=== PATIENT | female | born 1960 | race Caucasian/White ===

== ENCOUNTER 2018-01-15 09:57 | Outpatient (CLI) | payer OTHER | END 2018-01-15 09:58 | disposition home or self-care (01) | LOC: BICMAMMO 09:57 | PROVIDERS: ATTEND Family Medicine | DX: Z12.31 Encounter for screening mammogram for malignant neoplasm of breast (principal); M81.0 Age-related osteoporosis without current pathological fracture | CPT/HCPCS: 77063; 77067; 77080 ==

== ENCOUNTER 2018-11-22 11:36 | Emergency (ER) | payer OTHER ==
[2018-11-22] MEDS ORDERED: Morphine 4 MG/ML VIAL ONE (12:00)
[2018-11-22 12:03] LABS: #Basophils 0.1 thou/uL (0.0-0.2); #Eosinphils 0.2 thou/uL (0.0-0.7); #Lymphocytes 1.5 thou/uL (1.20-3.40); #Monocytes 0.3 thou/uL (0.11-0.59); #Neutrophils 3.6 thou/uL (1.40-6.50); %Basophils 1.5 % (0.0-1.0); %Eosinophils 3.7 % (0.0-10.0); %Lymphocytes 26.4 % (21.0-51.0); %Monocytes 5.7 % (0.0-10.0); %Neutrophils 62.6 % (42.0-75.0); Hemoglobin 13.6 g/dL (12.0-16.0); Mean Corpuscular Hemoglobin 32.4 pg (27.0-31.0); Mean Corpuscular Volume 89.8 fL (78.0-98.0); Mean Platelet Volume 6.4 fL (7.4-10.4); Platelet Count 221 thou/uL (130-400); RBC Distribution Width 11.3 % (11.5-14.5); Red Blood Cell (RBC) Count 4.21 mill/uL (4.20-5.40); White Blood Cell (WBC) Count 5.7 thou/uL (4.8-10.8)
[2018-11-22 12:18] LABS: ALT (SGPT) 13 U/L (8-55); AST (SGOT) 11 U/L (5-34); Albumin 3.6 g/dL (3.5-5.0); Alkaline Phosphatase 110 U/L (40-150); Anion Gap 14 mmol/L (10-20); BUN (Urea Nitrogen) 8 mg/dL (9.8-20.1); Bilirubin, Total 0.2 mg/dL (0.2-1.2); CK (CPK) 58 U/L (29-168); Calc. Creatinine Clearance 0 mL/min (70-130); Calcium 8.6 mg/dL (7.8-10.44); Carbon Dioxide 21 mmol/L (22-29); Chloride 95 mmol/L (98-107); Estimated GFR-MDRD Greater than 90; Globulin 2.6 g/dL (2.4-3.5); Glucose 141 mg/dL (70-105); Lipase 12 U/L (8-78); Potassium 3.4 mmol/L (3.5-5.1); Protein, Total 6.2 g/dL (6.0-8.3); Sodium 127 mmol/L (136-145)
--- NOTE | 2018-11-22 13:40 | CT ---
CT CHEST WITH CONTRAST CT THORACIC SPINE WITH CONTRAST AND 3D VOLUME RENDERING: CLINICAL HISTORY: Posttraumatic injury, pain related to fall. FINDINGS: There is a circumscribed ovoid density of the pleural margin of the lateral right hemithorax, abuttin g the periphery of the right middle and right lower lobes at the level of convergence of the lateral margin of the major and minor pulmonary fissures measuring 3 cm AP x 1 cm transverse. Bilater al subpleural patchy opacities may relate to dependent atelectasis. No pleural effusion or pneumothorax. No posttraumatic aneurysmal dilatation of thoracic aorta or evidence of acute periaorti c hematoma. Imaging of the thoracic spine reveals a slight degree of kyphosis and levocurvature, without acute compression fracture or subluxation. No significant retropulsion of bone into the verte bral canal. Incidental imaging of small hypodensities of the hepatic parenchyma, too small to definitively characterize. IMPRESSION: 1. No definite acute post traumatic sequela of the chest. 2. Incidental note of ovoid, mass-like density of the pleural margin the lateral right hemithorax. R ecommend follow-up with pulmonary medicine consultation. Code lung nodule Transcribed Date/Time: 11/22/2018 2:06 PM
== END 2018-11-22 13:50 | disposition home or self-care (01) ==
LOC: SCSER 11:36
DX: S20.212A Contusion of left front wall of thorax, initial encounter (principal); F32.9 Major depressive disorder, single episode, unspecified; W22.8XXA Striking against or struck by other objects, initial encounter
CPT/HCPCS: 71260; 80053; 82550; 83690; 84484; 85025; 93005; J2270

== ENCOUNTER 2018-11-24 12:07 | Inpatient (IN) | payer OTHER ==
[2018-11-24] MEDS ORDERED: Ondansetron PF 4 MG/2 ML Vial ONE (12:32)
--- NOTE | 2018-11-24 13:03 | RAD ---
EXAM: Single view of the chest HISTORY: Syncope COMPARISON: 02/23/2012 FINDINGS: Single view of the chest shows a normal sized cardiomediastinal silhouette. There is no trenton dence of consolidation, mass, or pleural effusion. The bones are unremarkable. IMPRESSION: No evidence of acute cardiopulmonary disease
--- NOTE | 2018-11-24 13:03 | CT ---
EXAM: CT brain without contrast HISTORY: Fall last night with headache COMPARISON: None TECHNIQUE: Multiple contiguous axial images were obtained and a CT of the brain without contrast. FINDINGS: A metallic foreign body is seen in the posterior midline. This could potentially represent surgical clips. The brain is normal otherwise in morphology and attenuation without focal lesions or confluent areas of infarction. There is no evidence of hydrocephalus, intracranial hemorrhage, or extra-axial fluid collection. The calvarium and overlying soft tissues are unremarkable. The visualized paranasal sinuses and masto id air cells are well aerated. IMPRESSION: No evidence of acute intracranial abnormality
[2018-11-24 13:10] LABS: Hemoglobin 13.8 g/dL (12.0-16.0); Mean Corpuscular HGB CONC 35.6 g/dL (32.0-36.0); Mean Corpuscular Hemoglobin 32.2 pg (27.0-31.0); Mean Corpuscular Volume 90.6 fL (78.0-98.0); Platelet Count 225 thou/uL (130-400); RBC Distribution Width 11.3 % (11.5-14.5); Red Blood Cell (RBC) Count 4.29 mill/uL (4.20-5.40); White Blood Cell (WBC) Count 6.4 thou/uL (4.8-10.8)
[2018-11-24 13:14] LABS: ALT (SGPT) 13 U/L (8-55); AST (SGOT) 15 U/L (5-34); Albumin 3.9 g/dL (3.5-5.0); Alkaline Phosphatase 117 U/L (40-150); Anion Gap 15 mmol/L (10-20); BUN (Urea Nitrogen) 9 mg/dL (9.8-20.1); Band 4 % (5-11); Bilirubin, Total 0.4 mg/dL (0.2-1.2); CK (CPK) 59 U/L (29-168); Calc. Creatinine Clearance 0 mL/min (70-130); Calcium 8.8 mg/dL (7.8-10.44); Carbon Dioxide 24 mmol/L (22-29); Chloride 90 mmol/L (98-107); Eosinophils 1 % (0-10); Estimated GFR-MDRD Greater than 90; Globulin 3.1 g/dL (2.4-3.5); Glucose 102 mg/dL (70-105); Lipase 9 U/L (8-78); Lymphocytes 25 % (21-51); MDiff Complete? YES; Monocytes 6 % (0-10); Neutrophil 63 % (42-75); Platelet Morphology Comment Appears Adequate; Potassium 3.7 mmol/L (3.5-5.1); RBC Morphology Normal; Sodium 125 mmol/L (136-145)
[2018-11-24] MEDS ORDERED: Aspirin Chewable 81 MG TAB ONE ×2 (13:33)
[2018-11-24 16:17] VITALS: BMI 28.1
[2018-11-24] MEDS ORDERED: Losartan 25 MG TAB PO SCH (16:45)
[2018-11-24 16:46] LABS: Troponin I Less than 0.010 ng/mL (< 0.028)
[2018-11-24] MEDS ORDERED: HYDROcodone/Acetaminophen 7.5/325 mg Tablet PO PRN (17:32)
[2018-11-24] MEDS: Sodium Chloride 0.9% 1,000 ML IV SCH ×2 (17:49→23:52)
[2018-11-24] MEDS: hydrALAZINE 20 MG/ML VIAL SLOW IVP PRN (18:09)
[2018-11-24] MEDS: Ondansetron PF 4 MG/2 ML Vial IVP PRN ×2 (18:12→23:51)
[2018-11-24] MEDS: Mometasone/Formoterol 120 PUFF INHALER INH SCH (18:41)
[2018-11-24 19:39] LABS: Troponin I Less than 0.010 ng/mL (< 0.028)
[2018-11-24] MEDS: Promethazine HCl 25 MG/ML VIAL IM PRN (21:42)
[2018-11-24] MEDS: levETIRAcetam 500 MG TAB PO SCH (21:49)
[2018-11-24] MEDS: Losartan 25 MG TAB PO SCH (21:49)
[2018-11-24] MEDS: Famotidine 20 MG TAB PO SCH (21:49)
--- NOTE | 2018-11-25 00:19 | HP ---
HISTORY OF PRESENT ILLNESS: This is a 58-year-old white female with a history of petit mal seizures, followed by Dr. Cooper, Neurology, who presents with altered mental status. The patient has a long history of seizure disorder, on Trileptal for many years. The family states that over the past 6 months or so, she has been becoming more confused. Lately, things have gotten worse. On Saturday, she presented to the ER after having multiple falls and sustained a chest contusion with marked bruising. Last night, she also fell 3 times. She complained of blurred vision and dizziness as well as a migraine headache. She saw Dr. Cooper, Neurology this morning and her Trileptal was stopped and she was started on Keppra. However, later in the day, she became more confused with increasing headache, dizziness, and blurred vision. She then presented to the ER where she was noted to have a significantly elevated blood pressure. Her sodium was also noted to be 125. At this time, the patient is feeling somewhat better, but still confused according to the family. The sister, daughter, and niece are present. PAST MEDICAL HISTORY: Osteoporosis, hypertension, petit mal seizure disorder, hyperlipidemia. History of AVM, corrected. Asthma. PAST SURGICAL HISTORY: Left femur fracture in 2011, hysterectomy, brain surgery for AVM repair at age 19, appendectomy, deviated septum repair. FAMILY HISTORY: Father with history of kidney stones, hypertension. Mother with depression. Siblings with colon problems. 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 She is . She has 2 kids. She does not smoke and does not drink. MEDICATIONS: 1. Celexa 40 daily. 2. Keppra 500 b.i.d. 3. Her Trileptal was stopped today by Dr. Cooper and the patient was started on the Keppra. REVIEW OF SYSTEMS: As above. ALLERGIES: LATEX AND CODEINE. PHYSICAL EXAMINATION: VITAL SIGNS: Temp 98.6, pulse 71, respirations 18, pulse ox 96, blood pressure 221/98, just received losartan 50 mg. GENERAL: No acute distress at this time except for complaining of a headache. The patient is oriented to person and time, but not location. She does not know where she is at this time. HEENT: Clear. NECK: Supple. HEART: Regular rate and rhythm. LUNGS: Clear. ABDOMEN: Soft, nontender. EXTREMITIES: With no edema. NEURO: The patient is somewhat confused. She does answer questions appropriately. However, she is not aware that she is here at [facility]. She also was confused about her address. She knew what street she lives on, but she got the number incorrect. LABORATORY DATA: White count 6.4, H and H 13/38, platelets 225. Sodium 125, potassium 3.7, creatinine 0.63. Troponin I less than 0.010 x2. Liver function tests normal. Lipase 9. Previous sodium was 127 two days prior. She does have a history of low sodiums back in [address], no acute disease. Chest x-ray, no acute disease. CT of the chest done on 11/22, did show an ovoid masslike density of the pleural margin on the right hemothorax. The patient is scheduled to see Dr. Deras. ASSESSMENT: 1. Altered mental status secondary to hyponatremia. 2. Hyponatremia, status post multiple falls with dizziness. Multiple possibilities include volume overload, medication induced (Trileptal as well as Keppra), or cancer. 3. Petit mal seizure disorder, recently stopped the Trileptal because of the hyponatremia. The patient is started on Keppra. However, Keppra can also cause hyponatremia. 4. Hypertension. 5. Hyperlipidemia. 6. Anxiety disorder. PLAN: 1. Fluid restrict. 2. Repeat electrolytes in the a.m. 3. Continue Keppra. 4. Blood pressure control. 5. Consider Nephrology consult if sodium does not correct quickly. May also consult Dr. Deras considering the lung mass could possibly cause hyponatremia also. However, this does not appear to be an acute problem. Also consider consulting Neurology. For now, we will fluid restrict and recheck electrolytes in the a.m. Job ID: [id number]
[2018-11-25] MEDS: Promethazine HCl 25 MG/ML VIAL IM PRN (04:58)
[2018-11-25] MEDS: Ondansetron PF 4 MG/2 ML Vial IVP PRN ×2 (06:38→16:06)
[2018-11-25] MEDS: Mometasone/Formoterol 120 PUFF INHALER INH SCH ×2 (07:14→19:34)
[2018-11-25] MEDS: Famotidine 20 MG TAB PO SCH ×2 (08:59→21:07)
[2018-11-25] MEDS: Citalopram 20 MG TAB PO SCH (09:01)
[2018-11-25] MEDS: Losartan 25 MG TAB PO SCH ×2 (09:01→21:07)
[2018-11-25] MEDS: Enoxaparin Sodium 40 MG/0.4 ML SYRINGE SC SCH (09:02)
[2018-11-25 09:03] LABS: Anion Gap 11 mmol/L (10-20); BUN (Urea Nitrogen) 5 mg/dL (9.8-20.1); Calc. Creatinine Clearance 107 mL/min (70-130); Calcium 8.9 mg/dL (7.8-10.44); Carbon Dioxide 25 mmol/L (22-29); Chloride 89 mmol/L (98-107); Estimated GFR-MDRD Greater than 90; Glucose 127 mg/dL (70-105); Potassium 3.4 mmol/L (3.5-5.1); Sodium 122 mmol/L (136-145)
[2018-11-25] MEDS: levETIRAcetam 500 MG TAB PO SCH ×2 (09:03→21:07)
[2018-11-25] MEDS: hydrALAZINE 20 MG/ML VIAL SLOW IVP PRN (09:23)
--- NOTE | 2018-11-25 15:09 | CON ---
DATE OF CONSULTATION: 11/25/2018 CONSULTING PHYSICIAN: Darnell Rodriguez MD. REASON FOR CONSULTATION: Lung density. HISTORY OF PRESENT ILLNESS: The patient is a 58-year-old female, who was admitted to the hospital yesterday by Dr. Win. She apparently has been more confused than usual. She recently fell and sustained a chest contusion. She seems to be sore on the right side. I have a great deal of difficulty getting her to answer any questions for me during the exam as she wants to go right back asleep. She has no previous history of smoking that I can find. No previous history of cancer. PAST MEDICAL HISTORY: 1. Osteoporosis. 2. Hypertension. 3. Petit mal seizure disorder. 4. Hyperlipidemia. 5. Brain AVM. 6. Asthma. PAST SURGICAL HISTORY: Left femur fracture, hysterectomy, brain surgery, appendectomy, deviated septum repair, AVM repair. FAMILY MEDICAL HISTORY: Remarkable for nephrolithiasis, hypertension, depression. SOCIAL HISTORY: Nonsmoker. Does not consume alcohol. 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 MEDICATIONS: 1. Celexa. 2. Keppra. 3. Trileptal as an outpatient. As an inpatient, she is currently taking, 1. Keppra. 2. Celexa. 3. Breo Ellipta. 4. Albuterol. REVIEW OF SYSTEMS: Cannot be obtained secondary to her confusion. PHYSICAL EXAMINATION: VITAL SIGNS: Temperature 97, pulse 94, blood pressure 196/96, O2 saturation 97% on room air. GENERAL: She does not appear to be in any distress. HEENT: Pupils somewhat dilated, but reactive. Sclerae anicteric. Oropharynx clear. NECK: No JVD. LUNGS: Clear to auscultation. CHEST: She has some palpable chest wall pain on the right side, but no visible bruising that I can see, but I had a hard time getting her to cooperate with exam as she would not roll over for me to examine her back. CARDIAC: S1 and S2 regular without murmur. ABDOMEN: Soft. Nontender to palpation. EXTREMITIES: No clubbing or cyanosis. She has bruising over both of her knees. LABORATORY DATA: Sodium 122, potassium 3.4, chloride 89, CO2 of 25, BUN 5, creatinine 0.6, glucose 127. White blood cell count 6.4, hematocrit 38.8, and platelet count 225. IMAGING STUDIES: CT of the chest was reviewed and compared to a CT from 2014. Most recent CT is from 11/22/2018. It demonstrates a 3 x 1 cm ovoid density laterally in the region of the right middle lobe, right lower lobe convergence. ASSESSMENT: 1. Density in the right chest. Given the history of falling, I am somewhat suspicious that this is a hematoma. I doubt that this is cancer. The only way we could tell would be to biopsy that and this could be done as an outpatient, if this does not show some tendency toward resolution over the next month. I doubt this has anything to do with her hyponatremia. 2. Hyponatremia. 3. Altered mental status. RECOMMENDATION: 1. Repeat CT scan in 4 to 6 weeks. 2. I would advise Nephrology consultation to work up and treat the hyponatremia. Job ID: [id number]
[2018-11-25 15:24] LABS: Anion Gap 12 mmol/L (10-20); BUN (Urea Nitrogen) 5 mg/dL (9.8-20.1); Calc. Creatinine Clearance 111 mL/min (70-130); Calcium 8.8 mg/dL (7.8-10.44); Carbon Dioxide 23 mmol/L (22-29); Chloride 92 mmol/L (98-107); Estimated GFR-MDRD Greater than 90; Glucose 121 mg/dL (70-105); Magnesium 1.7 mg/dL (1.6-2.6); Potassium 3.8 mmol/L (3.5-5.1); Sodium 123 mmol/L (136-145)
[2018-11-25 15:29] LABS: Phosphorus 1.9 mg/dL (2.3-4.7)
[2018-11-25] MEDS ORDERED: Sodium Phosphate 30 MMOL in Sodium Chloride 0.9% 250 ML 250 ML IVPB ONE (16:00)
--- NOTE | 2018-11-25 18:50 | PRG ---
DATE OF SERVICE: 11/25/2018 HISTORY OF PRESENT ILLNESS: The patient remains somnolent and unable to carry on complex questioning, is arousable and follows commands, but quickly returns to sleep without stimulus. Daughter is at bedside. Answered all of her questions. PHYSICAL EXAMINATION: VITAL SIGNS: At the time of exam, this morning; temperature of 97.0, pulse of 93, respiratory rate of 18, oxygen saturation 97% on room air, and blood pressure range 156/75 to 196/96. GENERAL: The patient is arousable, somnolent. No acute distress. HEENT: Head is normocephalic and atraumatic. Extraocular movements are intact. Sclerae are white. Oral mucosa is moist. NECK: Supple. HEART: Regular rate and rhythm at the time of exam. No murmurs auscultated. LUNGS: Clear to auscultation bilaterally. No rubs or wheezes. The patient is somewhat nauseated at bedside with movement. ABDOMEN: Soft and nontender. Positive bowel sounds throughout. EXTREMITIES: Lower extremities without cyanosis or edema. LABORATORY DATA: Electrolytes; 122 of sodium this morning, trending to 123 this afternoon; a potassium of 3.4, trending to 3.8; creatinine of 0.5; glucose of 121; phosphorus of 1.9; magnesium of 1.7; and calcium of 8.8. ASSESSMENT AND PLAN: 1. Hyponatremia. 2. Severe hypophosphatemia. 3. Recurrent falls with head injury. 4. Altered mental status. 5. Lung hematoma. 6. Seizure disorder. 7. Hypertension. Added metoprolol to angiotensin-receptor aaron for blood pressure control. Continuing Keppra for seizure disorder control. Consulting Nephrology for hyponatremia resistant to fluid restriction and mild IV fluids. Consulted Dr. Asif with Pulmonology for recommendations on lung nodule and feels that the hematoma rather than anything more sinister, but did recommend followup with CT scan in approximately 6 months. Replacing low phosphate with IV replacement. We will check in the morning and trend sodium. The patient has had gross instability with attempts to go to the restroom, etc. Goals to look at likely physical therapy and/or possible placement needs going forward once the patient's sodium is a bit more stabilized. We will follow up on Nephrology recommendations. Job ID: [id number]
--- NOTE | 2018-11-26 00:36 | CON ---
DATE OF CONSULTATION: REASON FOR CONSULTATION: Hyponatremia. HISTORY OF PRESENT ILLNESS: This is a 58-year-old female who has [id number] dementia, was noted to have lung density and a sodium of 122, which had been progressively getting low over the last few days. Her sodium has improved to 123 today after IV fluids. The patient can give no further history. PAST MEDICAL HISTORY: Osteoporosis, hypertension, seizures, hyperlipidemia, brain AVM, asthma, history of femur fracture, hysterectomy, brain surgery, appendectomy, AVM repair. FAMILY HISTORY: Negative for ESRD. SOCIAL HISTORY: No alcohol or drug use. ALLERGIES: REVIEWED. MEDICATIONS: Home medication list reviewed. Hospital medication list reviewed. REVIEW OF SYSTEMS: Unobtainable. PHYSICAL EXAMINATION: See above. CONSTITUTIONAL: The patient is awake and alert. VITAL SIGNS: breathing 16, blood pressure was 156/75. GENERAL APPEARANCE AND MENTAL STATUS: Fair. HEAD/NECK: Normocephalic. Atraumatic. EYES: EOMI. No deformity. EARS: Clear. No ulcers. NOSE: Intact. No lesions. MOUTH: Clear. No discharge. THROAT: Clear. No exudate. LUNGS: Clear. No crackles. CARDIAC: S1, S2. No rub. ABDOMEN: Benign. Bowel sounds positive. GENITALIA/RECTUM: Ordonez absent. BACK/EXTREMITIES: Edema 0+. NEUROLOGICAL: Alert and motor intact. SKIN: LYMPHATICS: LABORATORY DATA: Reviewed. ASSESSMENT AND PLAN: 1. Hyponatremia most likely because of syndrome of inappropriate antidiuretic hormone due to underlying lung lesion versus medication. We would recommend 800 mL fluid restriction. 2. Hypokalemia, resolved. 3. Hypertension, stable. 4. Altered mental status. Agree with palliative care plan. No urgent indication for hypotonic saline. Job ID: [id number]
[2018-11-26 05:17] LABS: Anion Gap 13 mmol/L (10-20); BUN (Urea Nitrogen) 5 mg/dL (9.8-20.1); Calc. Creatinine Clearance 106 mL/min (70-130); Calcium 9.2 mg/dL (7.8-10.44); Carbon Dioxide 26 mmol/L (22-29); Chloride 96 mmol/L (98-107); Estimated GFR-MDRD Greater than 90; Glucose 100 mg/dL (70-105); Phosphorus 3.1 mg/dL (2.3-4.7); Potassium 3.3 mmol/L (3.5-5.1); Sodium 132 mmol/L (136-145)
[2018-11-26] MEDS ORDERED: Potassium Chloride 40 MEQ in Sodium Chloride 0.9% 250 ML 250 ML IVPB SCH (07:00)
[2018-11-26] MEDS: Mometasone/Formoterol 120 PUFF INHALER INH SCH ×2 (08:04→18:15)
[2018-11-26] MEDS ORDERED: Sodium Chloride 0.9% 10 ML ONE (08:11)
[2018-11-26] MEDS: Famotidine 20 MG TAB PO SCH ×2 (08:29→21:02)
[2018-11-26] MEDS: levETIRAcetam 500 MG TAB PO SCH ×2 (08:29→21:02)
[2018-11-26] MEDS: Enoxaparin Sodium 40 MG/0.4 ML SYRINGE SC SCH (08:29)
[2018-11-26] MEDS: Losartan 25 MG TAB PO SCH ×2 (08:30→21:02)
[2018-11-26] MEDS: Citalopram 20 MG TAB PO SCH (08:30)
[2018-11-26] MEDS: Magnesium Oxide 400 MG TAB PO SCH ×2 (08:31→21:02)
--- NOTE | 2018-11-26 09:14 | PRG ---
DATE OF SERVICE: 11/26/2018 SUBJECTIVE: The patient is much more alert this morning. Her daughter was actually in the room when I saw her this morning too. The patient does relate that she had a fall several days ago to her chest and says the right side of her chest is hurting about the point where you expected based on CT scan. OBJECTIVE: VITAL SIGNS: Today; temperature is 98.5, pulse 70, respirations 16, and O2 saturation 97%. HEENT: Unremarkable. NECK: No JVD. LUNGS: Clear chest palpable pain along the right lateral fifth and six rib region. CARDIAC: S1 and S2. Regular. ABDOMEN: Soft. EXTREMITIES: No edema. LABORATORY DATA: Sodium 132, potassium 3.3, BUN 5, creatinine 0.6, and glucose 100. White blood cell count 6.4, hematocrit 38.8, and platelet count 225. ASSESSMENT: Right-sided lung density, which I think is probably a hematoma from the fall. PLAN: I spoke to the patient and her daughter about this. I will go ahead and have my office arrange for a followup CT scan in 4 to 6 weeks to assure resolution. I doubt this has anything to do with her hyponatremia, although occasionally can see a SIADH syndrome from pain. I would be more suspicious of her medications that she is taking and I will defer to the Family Medicine Nephrology on that. Job ID: [id number]
[2018-11-26] MEDS ORDERED: Dextrose 5% in Water 1,000 ML IV SCH (11:15)
--- NOTE | 2018-11-26 11:19 | PQF ---
[facility],JEFFREY MONTOYA JUSTUS RINA [id number] CLINICAL DOCUMENTATION IMPROVEMENT CLARIFICATION FORM: ICD-10 Updated PLEASE DO AN ADDENDUM TO THE PROGRESS NOTE WITH ANY DOCUMENTATION UPDATES OR ADDITIONS AND CARRY THROUGH TO DC SUMMARY. THANK YOU. DATE: 11/26 ATTN: DR. RINA JEROME Please exercise your independent, professional judgment in responding to the clarification form. Clinical indicators are provided on the bottom of this form for your review. Please check appropriate box(s): [ x] Encephalopathy: Type: [ x ] Acute [ ] Subacute [ ] Chronic Etiology: [ x] Metabolic [ ] Toxic [ ] Drug Induced: [ ] Other (please specify) [ ] Other diagnosis [ ] Unable to determine In addition, please specify: Present on Admission (POA): [ x] Yes [ ] No [ ] Unable to determine For continuity of documentation, please document condition throughout progress notes and discharge summary. Thank You. CLINICAL INDICATORS - SIGNS / SYMPTOMS / LABS H&P 11/24 (CONNOR): HX OF PRESENT ILLNESS: PRESENTS WITH ALTERED MENTAL STATUS. ...HER SODIUM WAS NOTED TO BE 125. AT THIS TIME, PT IS FEELING SOMEWHAT BETTER, BUT STILL CONFUSED ACCORDING TO FAMILY. PHYSICAL EXAM: NEURO: THE PT IS SOMEWHAT CONFUSED ASSESSMENT: 1) ALTERED MENTAL STATUS 2/2 HYPONATREMIA PULMONARY H&P 11/24 (RICHARD): ASSESSMENT: 2) HYPONATREMIA; 3) ALTERED MENTAL STATUS ATTENDING PN 11/25 (JUSTUS): THE PT REMAINS SOMNOLENT & UNABLE TO CARRY ON COMPLEX QUESTIONING. ASSESSMENT/PLAN: 1) HYPONATREMIA; 2) SEVERE HYPOPHOSPHATEMIA; 4) ALTERED MENTAL STATUS PULMONOLOGY PN 11/26 (RICHARD): THE PT IS MUCH MORE ALERT THIS MORNING SODIUM: 125 - 132 (11/24-) PHOSPHORUS: 1.9 -3.1 (11/25-) RISKS: HYPONATREMIA HYPOPHOSPHATEMIA PETIT MAL SEIZURE DO TREATMENT: NEPHROLOGY CONSULT (11/24) IVF (NS 11/24-; SODIUM PHOSPHATE NS 11/25) THANK YOU! Lisset (This form is maintained as a part of the permanent medical record) 2014 [employer]. All Rights Reserved Lisset Feldman, RN, BSN [email or web address] Office: [phone] DEYA
[2018-11-26 12:30] LABS: Anion Gap 11 mmol/L (10-20); BUN (Urea Nitrogen) 7 mg/dL (9.8-20.1); Calc. Creatinine Clearance 95 mL/min (70-130); Calcium 9.5 mg/dL (7.8-10.44); Carbon Dioxide 28 mmol/L (22-29); Chloride 99 mmol/L (98-107); Estimated GFR-MDRD 90; Glucose 100 mg/dL (70-105); Sodium 134 mmol/L (136-145)
--- NOTE | 2018-11-26 14:40 | PRG ---
DATE OF SERVICE: 11/26/2018 SUBJECTIVE: This is a 58-year-old female, being seen for hyponatremia. The patient denies any nausea, vomiting, or chest pain. OBJECTIVE: CONSTITUTIONAL: The patient is awake, alert, in no acute distress. GENERAL APPEARANCE AND MENTAL STATUS: Fair. VITAL SIGNS: Afebrile, pulse 75, breathing 16, blood pressure 136/65. HEAD/NECK: Normocephalic. Atraumatic. EYES: EOMI. No deformity. EARS: Clear. No ulcers. NOSE: Intact. No lesions. MOUTH: Clear. No discharge. THROAT: Clear. No exudate. LUNGS: Clear. No crackles. CARDIAC: S1, S2. No rub. ABDOMEN: Benign. Bowel sounds positive. GENITALIA/RECTUM: Ordonez absent. BACK/EXTREMITIES: Edema 0+. NEUROLOGICAL: Alert and motor intact. SKIN: LYMPHATICS: LABORATORY DATA: Sodium is 132. ASSESSMENT AND PLAN: 1. Hyponatremia, improved. 2. Syndrome of inappropriate antidiuretic hormone, improved. 3. Medication based on GFR appropriate. I will stop fluid restriction. Start the patient on D5W. Job ID: [id number]
[2018-11-26 16:26] LABS: Anion Gap 10 mmol/L (10-20); BUN (Urea Nitrogen) 8 mg/dL (9.8-20.1); Calc. Creatinine Clearance 99 mL/min (70-130); Calcium 9.5 mg/dL (7.8-10.44); Carbon Dioxide 28 mmol/L (22-29); Chloride 100 mmol/L (98-107); Estimated GFR-MDRD Greater than 90; Glucose 118 mg/dL (70-105); Potassium 4.1 mmol/L (3.5-5.1); Sodium 134 mmol/L (136-145)
--- NOTE | 2018-11-26 17:31 | PRG ---
DATE OF SERVICE: 11/26/2018 HISTORY OF PRESENT ILLNESS: The patient's sodium has climbed above 130. The patient is itching to have telemetry stickers removed, reviewed telemetry strips without any abnormality other than mild sinus tachycardia in the low 100s. No regular rates or rhythms otherwise. Discontinue telemetry. The patient transitioned to Med Oncology Floor given she is on palliative service and Nephrology has recommended now that sodium is above 130 to discontinue fluid restriction, in favor of D5W water have replaced the patient's electrolytes this morning regarding hypokalemia. The patient's mentation is much better this morning. However, daughter is at bedside and the patient still has issues with short-term memory, will seem to follow conversation while in room, but then quickly ask you know who was in the room. The patient does not have short-term recall past about 5 minutes when speaking with daughter. Daughter is concerned about patient going home. The patient wants to go home, however, has had multiple falls in the last several months, having Physical Therapy and Case Management come by for likely SNF versus inpatient rehab placement services. PHYSICAL EXAMINATION: VITAL SIGNS: Temperature of 98.2, pulse of 64, respiratory rate of 16, oxygen saturation of 98% on room air, and blood pressure of 168/77. GENERAL: The patient is alert, follows conversation minimally, ends up repeating herself very quickly by end of the conversation and still remains to be adamant and wanted to go home but however, no acute distress. HEENT: Head is normocephalic and atraumatic. Extraocular movements are intact. Sclerae are white. Oral mucosa is moist. NECK: Supple. HEART: Regular rate and rhythm at time of exam. No murmurs auscultated. LUNGS: Clear to auscultation bilaterally. No rubs or wheezes. ABDOMEN: Soft and nontender. Positive bowel sounds throughout. EXTREMITIES: Lower extremities without cyanosis or edema. The patient is alert and oriented x1 to 2. No focal deficits. Otherwise, speech is normal. The patient is sitting up today with glasses on; compared to yesterday, somnolent and very nauseated, unable to carry on conversation, but her mentation is much improved. LABORATORY DATA: Sodium of 132, potassium of 3.3, and creatinine of 0.6. Phosphorus improved to 3.1. Serum osmolality of 263. Urine osmolality of 160. ASSESSMENT AND PLAN: Severe hyponatremia, currently improved; hypophosphatemia, currently resolved; hypokalemia, resolved on repeat check this afternoon; recurrent falls with head injury. Physical therapy does seem to agree with rehab placement. Case Management following. 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 The patient's altered mental status is improving. Seizure disorder history. Hypertension, improved control with increase in metoprolol. Seizure disorder. The patient is continuing Keppra. The patient on prophylactic Lovenox. Followup Physical Therapy, Case Management, and Nephrology recommendations going forward. Job ID: [id number]
[2018-11-26] MEDS: Dextrose 5% in Water 1,000 ML IV SCH ×2 (18:45→23:52)
[2018-11-27 04:02] LABS: #Basophils 0.1 thou/uL (0.0-0.2); #Eosinphils 0.2 thou/uL (0.0-0.7); #Lymphocytes 2.5 thou/uL (1.20-3.40); #Monocytes 0.6 thou/uL (0.11-0.59); #Neutrophils 3.2 thou/uL (1.40-6.50); %Eosinophils 3.3 % (0.0-10.0); %Lymphocytes 38.1 % (21.0-51.0); %Monocytes 9.8 % (0.0-10.0); %Neutrophils 47.8 % (42.0-75.0); Hemoglobin 13.5 g/dL (12.0-16.0); Mean Corpuscular HGB CONC 34.8 g/dL (32.0-36.0); Mean Corpuscular Hemoglobin 32.9 pg (27.0-31.0); Mean Corpuscular Volume 94.6 fL (78.0-98.0); Mean Platelet Volume 6.8 fL (7.4-10.4); Platelet Count 217 thou/uL (130-400); RBC Distribution Width 11.6 % (11.5-14.5); Red Blood Cell (RBC) Count 4.09 mill/uL (4.20-5.40); White Blood Cell (WBC) Count 6.6 thou/uL (4.8-10.8)
[2018-11-27] MEDS: hydrALAZINE 20 MG/ML VIAL SLOW IVP PRN ×2 (04:13→17:14)
[2018-11-27 04:19] LABS: ALT (SGPT) 12 U/L (8-55); AST (SGOT) 16 U/L (5-34); Albumin 3.6 g/dL (3.5-5.0); Alkaline Phosphatase 99 U/L (40-150); Anion Gap 11 mmol/L (10-20); BUN (Urea Nitrogen) 11 mg/dL (9.8-20.1); Bilirubin, Total 0.4 mg/dL (0.2-1.2); Calc. Creatinine Clearance 101 mL/min (70-130); Carbon Dioxide 25 mmol/L (22-29); Chloride 100 mmol/L (98-107); Estimated GFR-MDRD Greater than 90; Globulin 2.7 g/dL (2.4-3.5); Glucose 113 mg/dL (70-105); Potassium 3.7 mmol/L (3.5-5.1); Protein, Total 6.3 g/dL (6.0-8.3); Sodium 132 mmol/L (136-145)
[2018-11-27] MEDS: Mometasone/Formoterol 120 PUFF INHALER INH SCH ×2 (08:06→18:10)
[2018-11-27] MEDS: Enoxaparin Sodium 40 MG/0.4 ML SYRINGE SC SCH (08:56)
[2018-11-27] MEDS: Magnesium Oxide 400 MG TAB PO SCH ×2 (08:57→21:53)
[2018-11-27] MEDS: Famotidine 20 MG TAB PO SCH ×2 (08:57→21:54)
[2018-11-27] MEDS: Citalopram 20 MG TAB PO SCH (08:57)
[2018-11-27] MEDS: Losartan 25 MG TAB PO SCH ×2 (08:57→21:53)
[2018-11-27] MEDS: levETIRAcetam 500 MG TAB PO SCH ×2 (08:58→21:54)
[2018-11-27] MEDS: Ondansetron PF 4 MG/2 ML Vial IVP PRN (09:16)
[2018-11-27] MEDS: Promethazine HCl 25 MG/ML VIAL IM PRN (10:51)
--- NOTE | 2018-11-27 11:47 | PRG ---
DATE OF SERVICE: SUBJECTIVE: A 58-year-old female being seen for hyponatremia. The patient denied nausea, vomiting, or chest pain. OBJECTIVE: CONSTITUTIONAL: The patient is awake and alert. VITAL SIGNS: Pulse 90, breathing 16, blood pressure 125/59. GENERAL APPEARANCE AND MENTAL STATUS: Fair. HEAD/NECK: Normocephalic. Atraumatic. EYES: EOMI. No deformity. EARS: Clear. No ulcers. NOSE: Intact. No lesions. MOUTH: Clear. No discharge. THROAT: Clear. No exudate. LUNGS: Clear. No crackles. CARDIAC: S1, S2. No rub. ABDOMEN: Benign. Bowel sounds positive. GENITALIA/RECTUM: Ordonez absent. BACK/EXTREMITIES: Edema 0+. NEUROLOGICAL: The patient is confused prior to me seeing her. SKIN: LYMPHATICS: LABORATORY DATA: Labs show sodium 132. ASSESSMENT AND PLAN: 1. Hyponatremia, stable. 2. Anemia, stable. Medication based on GFR appropriate. 3. Chronic dementia prior to this hospitalization. The patient lives in a monitored facility. I will recommend neurological consultation. No correlation between hyponatremia and altered mental status. Job ID: [id number]
[2018-11-27] MEDS ORDERED: Lorazepam 2 MG/ML VIAL SLOW IVP PRN ×2 (13:42→17:55)
[2018-11-27] MEDS ORDERED: Amlodipine 10 MG TAB PO SCH (18:30)
--- NOTE | 2018-11-27 19:31 | PRG ---
DATE OF SERVICE: 11/27/2018 HISTORY OF PRESENT ILLNESS: The patient has remained agitated throughout the evening. Short-term memory remains impaired. No formal seizure has been reported. The patient continues to want to go "home," however, the patient has been noted to be extreme fall risk hazard when assisted to the restroom, etc., has bed alarm on, is next to nurses' station, has daughter or sister at bedside currently taking shifts to help watch the patient. Some of this behavior possibly started after the patient changed from trileptal to Keppra. Reported reason per daughter was secondary to his hyponatremia which was already starting prior to this admission. Nursing staff reports that 0.5 mg of IV Ativan did not help with the patient's agitation. PHYSICAL EXAMINATION: VITAL SIGNS: Temperature of 97.2, pulse of 88, respiratory rate of 16, oxygen saturation 97% on room air, blood pressure 176/84. GENERAL: The patient has used p.r.n. hydralazine 2 times today. On physical exam, the patient is confused as to fully what time it is, where she is, just pleading to go home and wanting to go bath, takes lots of coaxing to return to bed. HEENT: Her head is normocephalic and atraumatic. Extraocular movements are intact. HEART: Regular rate and rhythm at the time of exam. No murmurs auscultated. LUNGS: Clear to auscultate bilaterally. No rubs or wheezes. ABDOMEN: Soft and nontender. Positive bowel sounds throughout. EXTREMITIES: Lower extremities without cyanosis or edema. NEUROLOGIC: The patient is alert and oriented times only one to approximate two, but certainly cannot undertake any medical decision making. LABORATORY DATA: White blood cell count this morning 6.6, hemoglobin of 13.5, platelet count of 217. Sodium of 132, potassium of 3.7, creatinine of 0.6, blood glucose of 113, calcium of 9.0. TSH of 2.1. ASSESSMENT: 1. Hyponatremia. 2. Hypophosphatemia. 3. Recurrent falls with head injury. 4. Altered mental status. 5. Metabolic encephalopathy, present on admission. 6. Lung hematoma. 7. Seizure disorder. 8. Hypertension, uncontrolled. 9. Hypokalemia. 10. Syndrome of inappropriate antidiuretic hormone secretion. PLAN: Electrolytes have successfully been replaced and not needing any further adjustments today. Blood pressure is worsening control, unclear if it is secondary to the patient's agitation. We will look at titrating blood pressure medications. The patient currently is on metoprolol 50 and losartan 100 mg. Heart rates have been 60 low, 90 high. Physical therapy working with the patient and recommending the patient would be a candidate for placement and work with Case Management for SNF or inpatient rehab. The patient is not safe to go home at current state. Despite improvement in the patient's hyponatremia, she is still lower than 135, however, has no longer severe hyponatremia with fluid restriction and D5W water, followed by Dr. Heramn, Nephrology. It is possible that with the change from trileptal to Keppra, some underlying mood disorder is worsening. We will attempt to reduce the patient's agitation with lorazepam on a short-term basis, initiating Zyprexa this evening to see if we can get her more sleep, follow up in the morning on electrolytes and placement status. Advanced directive is on file regarding DNR/DNI status, and the patient's medical power of admitted attorneys is listed as the sister which is at bedside does approve our decision towards placement and does reaffirm her desire for DNR/DNI for the patient. Consulted Neurology for opinion on mentation, cognition, and seizure history. Job ID: [id number]
[2018-11-27] MEDS: Dextrose 5% in Water 1,000 ML IV SCH (20:11)
[2018-11-27] MEDS: OLANZapine 5 MG TAB PO SCH (21:55)
[2018-11-28 04:41] LABS: Anion Gap 12 mmol/L (10-20); BUN (Urea Nitrogen) 10 mg/dL (9.8-20.1); Calc. Creatinine Clearance 104 mL/min (70-130); Calcium 9.3 mg/dL (7.8-10.44); Carbon Dioxide 26 mmol/L (22-29); Chloride 102 mmol/L (98-107); Estimated GFR-MDRD Greater than 90; Glucose 98 mg/dL (70-105); Potassium 3.6 mmol/L (3.5-5.1); Sodium 136 mmol/L (136-145)
[2018-11-28] MEDS: Mometasone/Formoterol 120 PUFF INHALER INH SCH ×2 (07:55→17:57)
[2018-11-28] MEDS: levETIRAcetam 500 MG TAB PO SCH ×2 (09:46→20:28)
[2018-11-28] MEDS: Citalopram 20 MG TAB PO SCH (09:46)
[2018-11-28] MEDS: Losartan 25 MG TAB PO SCH ×2 (09:46→20:28)
[2018-11-28] MEDS: Famotidine 20 MG TAB PO SCH ×2 (09:46→20:27)
[2018-11-28] MEDS: Enoxaparin Sodium 40 MG/0.4 ML SYRINGE SC SCH (09:47)
[2018-11-28] MEDS: Magnesium Oxide 400 MG TAB PO SCH ×2 (09:47→20:28)
[2018-11-28] MEDS: Amlodipine 10 MG TAB PO SCH (09:47)
[2018-11-28] MEDS ORDERED: Milk Of Magnesia 30 ML UDCUP PO PRN (17:10)
[2018-11-28] MEDS: Docusate 100 MG CAP PO SCH (20:28)
[2018-11-28] MEDS: OLANZapine 5 MG TAB PO SCH (20:28)
--- NOTE | 2018-11-28 21:18 | PRG ---
DATE OF SERVICE: 11/28/2018 HISTORY OF PRESENT ILLNESS: The patient with improved mentation this morning; however, still has some short-term memory loss when speaking with family and nursing staff at bedside. She is able to recall my 1st name, however, is not able to recall my last name as far as moderate term memory this a.m. is largely alert and oriented x2 today and verbalized understanding regarding current circumstances and need to obtain more control at inpatient rehab versus correction facility at this point in time. The staff reports that the patient had a good night following Zyprexa and the night before she was having breakthrough symptoms of agitation and would not stay in bed, confusion, 0.5 mg of Ativan was not helping the patient or even much better with 1 mg of Ativan. LABORATORY WORK: Sodium of 136, potassium of 3.6, creatinine of 0.6, B12 of 344, free T4 of 0.9. IMAGING STUDIES: EEG performed, read not yet available. PHYSICAL EXAMINATION: VITAL SIGNS: This morning, her temperature is 98.1, pulse is 73, respiratory rate of 16, oxygen saturation 98% on room air, blood pressure 117/63. GENERAL: The patient is alert, no acute distress. HEENT: Head is normocephalic, atraumatic. Extraocular movements are intact. Sclerae are white. Oral mucosa is moist. NECK: Supple. Nontender. Positive bowel sounds. ABDOMEN: Soft, nontender. HEART: Regular rate and rhythm at the time of exam. No murmurs auscultated. LUNGS: Clear to auscultation bilaterally. No rubs or wheezes. LOWER EXTREMITIES: No cyanosis or edema. NEUROLOGICAL: The patient oriented x2. No focal deficits. Speech is normal. Some difficulty with memory as above per HPI. ASSESSMENT AND PLAN: Hyponatremia, hypokalemia, hypophosphatemia, currently resolved. Continue with fluid restriction 1500 mL at this point. The patient has been discontinued off D5W by Nephrology. The patient's blood pressure is somewhat better controlled for hypertension following initiation of calcium-channel aaron on top of beta-aaron and angiotensin receptor aaron, still has p.r.n. hydralazine ordered for breakthrough symptoms, continues to have p.r.n. Ativan for agitation, none have been used so far today following Zyprexa, we will continue this evening. Continuing Keppra for the patient's seizure disorder. Follow up on Neurology's recommendations given the patient's recurrent falls, gait instability, and metabolic encephalopathy. Looking to have the patient placed in correction or inpatient rehab. Following up on Case Management recommendations per nursing staff, likely will not go today. We will handoff to Dr. Jesse Win over the weekend. Job ID: [id number]
[2018-11-29] MEDS: Mometasone/Formoterol 120 PUFF INHALER INH SCH ×2 (07:59→18:56)
[2018-11-29] MEDS: Docusate 100 MG CAP PO SCH ×2 (09:25→20:47)
[2018-11-29] MEDS: Famotidine 20 MG TAB PO SCH ×2 (09:25→20:48)
[2018-11-29] MEDS: Amlodipine 10 MG TAB PO SCH (09:25)
[2018-11-29] MEDS: Magnesium Oxide 400 MG TAB PO SCH ×2 (09:25→20:48)
[2018-11-29] MEDS: Losartan 25 MG TAB PO SCH ×2 (09:25→20:46)
[2018-11-29] MEDS: levETIRAcetam 500 MG TAB PO SCH ×2 (09:25→20:47)
[2018-11-29] MEDS: Enoxaparin Sodium 40 MG/0.4 ML SYRINGE SC SCH (09:26)
[2018-11-29] MEDS: Citalopram 20 MG TAB PO SCH (09:26)
--- NOTE | 2018-11-29 10:13 | PRG ---
DATE OF SERVICE: 11/29/2018 SUBJECTIVE: The patient is doing well this morning. She is conversing well. She is much better than when I admitted her 5 days prior. OBJECTIVE: VITAL SIGNS: Temperature 98.2, pulse 63, respirations 16, pulse ox 96%, and blood pressure 181/82, 145/66. HEART: Regular rate and rhythm. LUNGS: Clear. ABDOMEN: Soft. EXTREMITIES: No edema. LABORATORY DATA: None. ASSESSMENT: 1. Altered mental status, improving. 2. Hyponatremia, improved. 3. Dementia, stable with possible improvement. Probably exacerbated by hyponatremia. 4. History of petit mal seizures, presently on Keppra. 5. Hypertension. 6. Hyperlipidemia. 7. Anxiety disorder. PLAN: 1. The patient is presently being evaluated for placement at [facility] for further therapy. 2. Continue to monitor electrolytes. 3. To follow up with Neurology. 4. We will order a CBC and BMP for the a.m. 5. We will also add amlodipine for the evening to help improve blood pressure control. Job ID: [id number]
[2018-11-29] MEDS: OLANZapine 5 MG TAB PO SCH (20:47)
[2018-11-30 04:00] LABS: #Basophils 0.1 thou/uL (0.0-0.2); #Eosinphils 0.5 thou/uL (0.0-0.7); #Lymphocytes 3.3 thou/uL (1.20-3.40); #Monocytes 0.5 thou/uL (0.11-0.59); %Basophils 1.6 % (0.0-1.0); %Eosinophils 6.4 % (0.0-10.0); %Lymphocytes 44.6 % (21.0-51.0); %Monocytes 7.3 % (0.0-10.0); %Neutrophils 40.1 % (42.0-75.0); Hemoglobin 13.1 g/dL (12.0-16.0); Mean Corpuscular HGB CONC 33.5 g/dL (32.0-36.0); Mean Corpuscular Hemoglobin 32.2 pg (27.0-31.0); Mean Corpuscular Volume 96.1 fL (78.0-98.0); Platelet Count 232 thou/uL (130-400); RBC Distribution Width 11.8 % (11.5-14.5); Red Blood Cell (RBC) Count 4.07 mill/uL (4.20-5.40); White Blood Cell (WBC) Count 7.4 thou/uL (4.8-10.8)
[2018-11-30 04:17] LABS: Anion Gap 14 mmol/L (10-20); BUN (Urea Nitrogen) 18 mg/dL (9.8-20.1); Calc. Creatinine Clearance 92 mL/min (70-130); Calcium 9.3 mg/dL (7.8-10.44); Carbon Dioxide 26 mmol/L (22-29); Chloride 104 mmol/L (98-107); Estimated GFR-MDRD 87; Glucose 92 mg/dL (70-105); Sodium 140 mmol/L (136-145)
[2018-11-30] MEDS: Enoxaparin Sodium 40 MG/0.4 ML SYRINGE SC SCH (08:58)
[2018-11-30] MEDS: Docusate 100 MG CAP PO SCH ×2 (08:59→21:07)
[2018-11-30] MEDS: Citalopram 20 MG TAB PO SCH (08:59)
[2018-11-30] MEDS: Losartan 25 MG TAB PO SCH ×2 (08:59→21:56)
[2018-11-30] MEDS: Magnesium Oxide 400 MG TAB PO SCH ×2 (09:01→21:13)
[2018-11-30] MEDS: levETIRAcetam 500 MG TAB PO SCH ×2 (09:01→21:09)
[2018-11-30] MEDS: Famotidine 20 MG TAB PO SCH ×2 (09:02→21:08)
[2018-11-30] MEDS: Amlodipine 10 MG TAB PO SCH (09:02)
[2018-11-30] MEDS: Mometasone/Formoterol 120 PUFF INHALER INH SCH ×2 (10:59→21:46)
--- NOTE | 2018-11-30 12:26 | PRG ---
DATE OF SERVICE: 11/30/2018 SUBJECTIVE: The patient is doing remarkably well. She is ambulating. She showered by herself. She is alert. OBJECTIVE: VITAL SIGNS: Temperature 98.1, pulse 66, respirations 16, pulse ox 98%, and blood pressure 116/62. HEART: Regular rate and rhythm. LUNGS: Clear. ABDOMEN: Soft. EXTREMITIES: No edema. LABORATORY DATA: Sodium is back to normal at 140, potassium 4.0, creatinine 0.69, and BUN 18. White count 7.4, H and H of 13 and 39. ASSESSMENT: 1. Altered mental status, markedly improved. 2. Hyponatremia, resolved. 3. Dementia. 4. History of petit mal seizure. 5. Hypertension. 6. Hyperlipidemia. 7. Anxiety disorder. PLAN: 1. Being evaluated for [facility]. 2. Continue to monitor electrolytes. 3. Follow up with neurology. 4. Dr. Rodriguez to resume care in the a.m. Job ID: [id number]
[2018-11-30] MEDS: Acetaminophen 325 MG TAB PO PRN ×2 (15:16→21:19)
[2018-11-30] MEDS: OLANZapine 5 MG TAB PO SCH (21:14)
[2018-12-01] MEDS: Mometasone/Formoterol 120 PUFF INHALER INH SCH ×2 (08:27→18:25)
[2018-12-01] MEDS: Docusate 100 MG CAP PO SCH ×2 (09:00→20:57)
[2018-12-01] MEDS: levETIRAcetam 500 MG TAB PO SCH ×2 (09:00→20:57)
[2018-12-01] MEDS: Citalopram 20 MG TAB PO SCH (09:00)
[2018-12-01] MEDS: Magnesium Oxide 400 MG TAB PO SCH ×2 (09:00→20:58)
[2018-12-01] MEDS: Losartan 25 MG TAB PO SCH ×2 (09:00→20:56)
[2018-12-01] MEDS: Amlodipine 10 MG TAB PO SCH (09:01)
[2018-12-01] MEDS: Famotidine 20 MG TAB PO SCH ×2 (09:01→20:57)
[2018-12-01] MEDS: Enoxaparin Sodium 40 MG/0.4 ML SYRINGE SC SCH (09:01)
--- NOTE | 2018-12-01 20:34 | PRG ---
DATE OF SERVICE: 12/01/2018 HISTORY OF PRESENT ILLNESS: The patient has continued to wait for placement services over the weekend, continue to work with physical therapy, has remained on fluid restriction with stable electrolytes, has been titrated on blood pressure medications, does report some chest wall pain that appears to be where the patient had fallen previously, still complains of that this morning, however, not worsening. Denies any worsening with ambulation. Unable to recognize me, her regular physician outside the hospital and has some difficulty with exact year and time, but is globally aware of approximately her circumstances where she is in [place], [place]. I spoke with family prior to entry this morning the patient's room, sister would be willing to take the patient on with home health if she cannot be placed in the near future. However, all parties agree patient best be served by inpatient rehab. If accepted giving her continued issues with mentation, need for monitoring medication blood pressure and sodium more closely than what outpatient home health could give. Review of vital signs; temperature of 97.6, pulse of 60, respiratory rate of 16, oxygen saturation of 97% on room air, and blood pressure 151/67. Sodium yesterday 140, potassium of 4.0, and creatinine of 0.69. PHYSICAL EXAMINATION: GENERAL: The patient is alert, in no acute distress. HEENT: Head is normocephalic and atraumatic. Extraocular movements are intact. Sclerae are white. Oral mucosa is moist. NECK: Supple. HEART: Regular rate and rhythm. No murmurs auscultated. LUNGS: Clear to auscultation bilaterally. No rubs or wheezes. ABDOMEN: Soft and nontender. Positive bowel sounds throughout. EXTREMITIES: Lower extremities without cyanosis or edema. The patient is alert and oriented x2 to person and place, not time or myself. I thought it was 2018. Does know who the president is. ASSESSMENT AND PLAN: Metabolic encephalopathy, SIADH, hypertension, seizure disorder, lung hematoma, current falls, altered mental status. The patient's sodium has currently been resolved with fluid restriction. The patient is ambulating better and better every day, however, continues to have mentation issues, typically lives by herself. Prior to this admission, blood pressure remains relatively stable on medications titrated on the patient. The patient is sleeping well with Zyprexa, which she has not been on outpatient basis. The patient remains on Keppra for at seizure prevention, waiting placement for inpatient rehab. Plan be if not excepted, we would look to have patient go home with sister with Home Health. We will continue to follow Case Management recommendations and if the patient is accepted. Job ID: [id number]
[2018-12-01] MEDS: OLANZapine 5 MG TAB PO SCH (20:57)
[2018-12-02 06:54] LABS: Anion Gap 11 mmol/L (10-20); BUN (Urea Nitrogen) 14 mg/dL (9.8-20.1); Calc. Creatinine Clearance 86 mL/min (70-130); Calcium 9.1 mg/dL (7.8-10.44); Carbon Dioxide 25 mmol/L (22-29); Chloride 107 mmol/L (98-107); Estimated GFR-MDRD 81; Glucose 93 mg/dL (70-105); Potassium 4.4 mmol/L (3.5-5.1); Sodium 139 mmol/L (136-145)
[2018-12-02] MEDS: Mometasone/Formoterol 120 PUFF INHALER INH SCH ×2 (08:20→19:31)
[2018-12-02] MEDS: Amlodipine 10 MG TAB PO SCH (09:31)
[2018-12-02] MEDS: Docusate 100 MG CAP PO SCH ×2 (09:31→20:45)
[2018-12-02] MEDS: Citalopram 20 MG TAB PO SCH (09:31)
[2018-12-02] MEDS: Losartan 25 MG TAB PO SCH ×2 (09:31→20:44)
[2018-12-02] MEDS: Famotidine 20 MG TAB PO SCH ×2 (09:32→20:45)
[2018-12-02] MEDS: Enoxaparin Sodium 40 MG/0.4 ML SYRINGE SC SCH (09:32)
[2018-12-02] MEDS: Magnesium Oxide 400 MG TAB PO SCH ×2 (09:32→20:45)
[2018-12-02] MEDS: levETIRAcetam 500 MG TAB PO SCH ×2 (09:32→20:45)
[2018-12-02] MEDS: OLANZapine 5 MG TAB PO SCH (20:45)
[2018-12-03] MEDS: Mometasone/Formoterol 120 PUFF INHALER INH SCH (07:28)
--- NOTE | 2018-12-03 08:30 | PRG ---
DATE OF SERVICE: 12/02/2018 HISTORY OF PRESENT ILLNESS: The patient still remained with waxing and waning mentation, slowly improving day by day per family, but doing well with sleeping with Zyprexa. No seizures with Keppra. Improved blood pressure control with titrated elements. Electrolytes were 139 sodium, 4.4 potassium 0.74 creatinine. PHYSICAL EXAMINATION: VITAL SIGNS: Temperature 98.5, pulse of 61, oxygen saturation of 98% on room air, respiratory rate of 16, and blood pressure 158/72. GENERAL: The patient was in no acute distress. HEENT: Head is normocephalic and atraumatic. Extraocular movements are intact. Sclerae are white. Oral mucosa is moist. HEART: Regular rate and rhythm at time of my exam. No murmurs auscultated. LUNGS: Clear to auscultation bilaterally. No rubs or wheezes. ABDOMEN: Soft, nontender. Positive bowel sounds throughout. EXTREMITIES: Lower extremities without cyanosis or edema. The patient is still alert and oriented times person and place, not to time and still does not recognize myself. Her PCP seen her multiple times on outpatient basis. Does not remember myself from yesterday either. She is starting remembers some things for family members that occurred in the last several months prior to hospitalization. The patient is able to recall plan of care without prompting toward intention to discharge to inpatient rehab as the patient has progressed; however, have discussed with family that if not qualify for inpatient rehab anymore, would return home with Home Health with supervision of sister. Has family supportive of son and daughter as well. more formal diagnoses, resolved hyponatremia, on fluid restriction, resolved electrolyte disturbances of hypophosphatemia and hypokalemia, recurrent falls, working with Physical Therapy. Discharged to walking program. Altered mental status and metabolic encephalopathy, slowly improving. We will continue to monitor on outpatient basis. Repeat electrolytes upon discharge with either Home Health or inpatient rehab. Lung hematoma. We will follow up on CT scan on outpatient basis in several weeks to months. She has seizure disorder, continuing on Keppra. Hypertension, continuing on angiotensin-receptor aaron and calcium-channel aaron. Awaiting Case Management placement. Job ID: [id number] [facility]
[2018-12-03 09:25] VITALS: TEMP 98
[2018-12-03] MEDS: Amlodipine 10 MG TAB PO SCH (09:39)
[2018-12-03] MEDS: Docusate 100 MG CAP PO SCH (09:41)
[2018-12-03] MEDS: Citalopram 20 MG TAB PO SCH (09:41)
[2018-12-03] MEDS: levETIRAcetam 500 MG TAB PO SCH (09:42)
[2018-12-03] MEDS: Famotidine 20 MG TAB PO SCH (09:42)
[2018-12-03] MEDS: Enoxaparin Sodium 40 MG/0.4 ML SYRINGE SC SCH (09:42)
[2018-12-03] MEDS: Magnesium Oxide 400 MG TAB PO SCH (09:43)
[2018-12-03] MEDS: Losartan 25 MG TAB PO SCH (09:43)
[2018-12-03 09:44] VITALS: BP 134/67
--- NOTE | 2018-12-03 10:39 | EEG ---
Referring Physician: Shashi OVERTON EEG # [id number] TEST TYPE: ROUTINE PORTABLE INPATIENT REPORT: AN EEG USING THE INTERNATIONAL TEN-TWENTY SYSTEM OF ELECTRODE PLACEMENT WAS PERFORMED. The best waking background activity is an 8 hertz Alpha frequency. This is poorly maintained and most of the study is Theta frequency. The patient became drowsy, but no sleep was seen. Photic stimulation was unremarkable. No epileptiform features were present. IMPRESSION: THIS IS AN ESSENTIALLY NORMAL television servicer: ROSINA Bond Runner: [email or web address] FALK
--- NOTE | 2018-12-04 01:51 | DIS ---
DATE OF ADMISSION: 11/24/2018 DATE OF DISCHARGE: 12/03/2018 PRESENTING CHIEF COMPLAINT: Altered mental status. HOSPITAL COURSE: The patient found to be in severe hyponatremia and suffered multiple falls, was transitioned from Trileptal to Keppra approximately 2-3 weeks prior to hospitalization. The patient has been maintained on serotonin agents on an outpatient basis for some time as well. On initial evaluation in emergency department, did find no signs of infection. Urine, blood, and chest x-ray were performed. Did have a CAT scan performed of brain. There was visualization of potential nodularity in lung, more specifically right density. Dr. Asif felt this was more likely a hematoma rather than cancer. Recommended to follow up with CT scan in several weeks to months to better trend progress. Dr. Herman still felt this was potential cause of SIADH based on osmolality and urine evaluations. Place the patient on fluid restriction. The patient's sodium normalized. EEG was performed under Dr. Ramachandran's review. No recommendations for change of seizure medication. The patient remained very agitated with metabolic encephalopathy, improved with resolution of electrolyte dysfunction; however, the patient still required medication for agitation, had some hyper-jain notes and once Zyprexa was started, she has been behaving normally again, was able to sleep through the night and not having any further agitation spells. Discussed with family plan to taper down over the next several months to the lowest effective dose for her. The patient's memory still not fully at baseline, but is good enough for her to return home with family support and home health as she does not qualify for inpatient rehab. We will continue home health nursing and physical therapy. Sister lives right around the corner, but we will keep her in her home for several weeks if able at least until discharge followup and checks with myself in the clinic. Follow up with myself, Dr. Darnell Rodriguez in 10 days, lab work at 7 days to recheck sodium. DISCHARGE DIET: Regular with fluid restriction of 1500 mL daily. DISCHARGE DIAGNOSES: Resolved hyponatremia, severe. Resolved hypophosphatemia. Resolved hypokalemia. Seizure disorder, controlled. Hypertension, improved. Altered mental status with metabolic encephalopathy, improved but not resolved. Lung hemangioma, syndrome of inappropriate antidiuretic hormone secretion. DISCHARGE MEDICATIONS: 1. Zyprexa 5 mg at bedtime. 2. Metoprolol 50 mg b.i.d. 3. Losartan 50 mg b.i.d. 4. Amlodipine 10 mg daily. 5. Keppra 1000 mg b.i.d. 6. Breo 100 mcg/25 mcg once daily. 7. Citalopram 40 mg daily. 8. Albuterol 2 puffs p.r.n. for cough, wheeze. DISCHARGE CONDITION: Fair. Job ID: [id number]
== END 2018-12-03 11:07 | disposition home health service (06) | DRG 643 ==
LOC: SCSER 12:07 → 2NO 13:40 → ONC 11-26 11:30
PROVIDERS: ADMIT Family Medicine; ATTEND Family Medicine
DX: E22.2 Syndrome of inappropriate secretion of antidiuretic hormone (principal); G93.41 Metabolic encephalopathy; G40.802 Other epilepsy, not intractable, without status epilepticus; S27.329A Contusion of lung, unspecified, initial encounter; I10 Essential (primary) hypertension; E78.5 Hyperlipidemia, unspecified; J45.909 Unspecified asthma, uncomplicated; M81.0 Age-related osteoporosis without current pathological fracture; F41.9 Anxiety disorder, unspecified; E83.39 Other disorders of phosphorus metabolism; E87.6 Hypokalemia; W19.XXXA Unspecified fall, initial encounter; F03.90 Unspecified dementia, unspecified severity, without behavioral disturbance, psychotic disturbance, mood disturbance, and anxiety; Z90.710 Acquired absence of both cervix and uterus; Z79.899 Other long term (current) drug therapy; Z88.5 Allergy status to narcotic agent; Z91.040 Latex allergy status; Z90.49 Acquired absence of other specified parts of digestive tract
CPT/HCPCS: 36415; 36416; 70450; 71045; 71260; 80048; 80053; 82550; 82607; 83690; 83735; 83930; 83935; 84100; 84207; 84439; 84443; 84484; 85025; 93005; 95816; 95819; 96361; 96374; J0360; J1650; J2060; J2270; J2405; J2550; J3480; J7050

== ENCOUNTER 2019-01-06 09:22 | Outpatient (CLI) | payer OTHER ==
--- NOTE | 2019-01-06 12:24 | CT ---
CT CHEST WITH CONTRAST: HISTORY: Follow up lung mass. COMPARISON: 11/22/2018 FINDINGS: A 1.4 x 2.3 x 1.7 cm in diameter, right-sided, mid chest pleural mass, stable. No evidence for defin itive rib erosive changes. No evidence for mediastinal mass or adenopathy. Minimal right-sided pleu ral thickening, stable. Stable low attenuation focus in the dome of the right lobe of the liver. Re view of a prior CT scan, dating back to 05/12/2014, demonstrates that this mass was not there at that time. There may have been, in retrospect, some slight pleural thickening in this region. IMPRESSION: Right-sided pleural mass, stable from 11/22/2018, but considerably changed when compared to an older exam, dated 05/12/2014. Minimal stable posterior pleural thickening in both lung bases, right greate r than left. No mediastinal mass or adenopathy. Other findings as above. POS: OFF
[2019-01-06] MEDS ORDERED: ISOVUE-370 76%-LOCM 1 ML ONE (13:53)
== END 2019-01-06 09:23 | disposition home or self-care (01) ==
LOC: BICCT 09:22
PROVIDERS: ATTEND Internal Medicine Critical Care Medicine
DX: R91.8 Other nonspecific abnormal finding of lung field (principal); J92.9 Pleural plaque without asbestos
CPT/HCPCS: 71260; Q9966

== ENCOUNTER 2019-04-06 12:29 | Outpatient (CLI) | payer OTHER ==
--- NOTE | 2019-04-06 18:20 | CT ---
CT CHEST WITH CONTRAST: Date: 04/06/19 INDICATION: Follow-up lung mass. COMPARISON: Chest CT dated 01/06/19. FINDINGS: The pleural based mass lateral right mid chest at the junction of the fissure with the pleural surfac e is again seen. This mass shows no significant change. On soft tissue windows, it continues to measu re approximately 2.3 x 1.4 cm. The lungs otherwise remain clear. There is no infiltrate or effusion. The mediastinum is unremarkable . Images through upper abdomen remain unremarkable with a small hepatic cyst again noted. IMPRESSION: Pleural based mass peripheral right mid chest is stable from 01/06/19. POS: [facility]
== END 2019-04-06 12:30 | disposition home or self-care (01) ==
LOC: BICCT 12:29
PROVIDERS: ATTEND Internal Medicine Critical Care Medicine
DX: R91.8 Other nonspecific abnormal finding of lung field (principal)
CPT/HCPCS: 71260

== ENCOUNTER 2019-04-17 09:01 | Day surgery (SDC) | payer OTHER ==
[2019-04-16 11:59] VITALS: BMI 30.2
[2019-04-17 09:18] LABS: #Basophils 0.1 thou/uL (0.0-0.2); #Eosinphils 0.5 thou/uL (0.0-0.7); #Lymphocytes 2.4 thou/uL (1.20-3.40); #Monocytes 0.3 thou/uL (0.11-0.59); #Neutrophils 3.8 thou/uL (1.40-6.50); %Basophils 0.8 % (0.0-1.0); %Eosinophils 7.7 % (0.0-10.0); %Lymphocytes 33.7 % (21.0-51.0); %Monocytes 4.6 % (0.0-10.0); %Neutrophils 53.2 % (42.0-75.0); Mean Corpuscular HGB CONC 34.3 g/dL (32.0-36.0); Mean Corpuscular Hemoglobin 32.3 pg (27.0-31.0); Mean Corpuscular Volume 94.2 fL (78.0-98.0); Mean Platelet Volume 7.3 fL (7.4-10.4); Platelet Count 238 thou/uL (130-400); RBC Distribution Width 11.6 % (11.5-14.5); Red Blood Cell (RBC) Count 4.34 mill/uL (4.20-5.40); White Blood Cell (WBC) Count 7.1 thou/uL (4.8-10.8)
[2019-04-17 09:24] LABS: PTT 34.1 SEC (22.9-36.1); Prothrombin Time 12.7 SEC (12.0-14.7)
[2019-04-17 10:09] VITALS: BP 149/74; TEMP 98.2
--- NOTE | 2019-04-17 12:49 | RAD ---
EXAM: CT chest without contrast per low-dose cancer screening protocol HISTORY: History of smoking and nicotine dependence COMPARISON: 10/07/2017, 04/30/2018 TECHNIQUE: Multiple contiguous axial images were obtained in a CT of the chest without contrast per l ow-dose cancer screening protocol. Sagittal and coronal reformats were performed. FINDINGS: Pulmonary nodules: Postsurgical changes are seen in the right upper lobe. A stable nodular opacity is seen in the left upper lobe measuring 3 mm in size on image 69 of 259. No other pulmonary nodules are seen. No focal infiltrates are seen. Pleural space: No pneumothorax or pleural effusion are seen. Heart: The heart is normal in size. Mediastinum: No hilar or mediastinal lymphadenopathy appreciated on this limited noncontrast examinat ion. Bones: Unremarkable. Visualized subdiaphragmatic structures: Appears to be a cyst in the spleen.. IMPRESSION: Lung RADS category 2-benign findings.
--- NOTE | 2019-04-17 13:54 | RAD ---
EXAM: XR Chest Insp/Exp PROVIDED CLINICAL HISTORY: Follow-up postlung biopsy. COMPARISON: Inspiratory/expiratory chest x-ray on 04/17/2019 at 1135 hours FINDINGS: Cardiac silhouette is magnified by projection. Pulmonary vasculature is within normal limits. Pleural -based mass lateral aspect right midlung zone is again seen. No pneumothorax or pleural effusion is seen. The lungs are otherwise clear. Chest is stable from prior study. IMPRESSION: 1. No evidence of a pneumothorax. 2. Stable pleural-based mass lateral aspect right mid lung zone.
--- NOTE | 2019-04-17 14:00 | RAD ---
2 VIEWS CHEST: Date: 04/17/19 COMPARISON: None. HISTORY: Status post lung biopsy. FINDINGS: Inspiratory and expiratory views of the chest show normal sized cardiomediastinal silhouette. There i s a mass along the right lateral chest wall. No pneumothorax is visualized. IMPRESSION: No evidence of pneumothorax status post right lung mass biopsy. POS: OFF
--- NOTE | 2019-04-17 14:06 | CT ---
EXAM: CT Lung Perc Biopsy PROVIDED CLINICAL HISTORY: Right pleural-based mass. Biopsy was requested. COMPARISON: CT thorax on 03/27/2019. TECHNIQUE: The procedure including the risks and complications were explained to the patient, and informed conse nt was obtained. The patient was placed on the CT scan table in the left lateral decubitus position. A limited noncontrasted CT scan was obtained with grid localizer in place overlying the lev el of the pleural-based mass left mid chest. An area was marked and then meticulously prepped and draped in usual sterile fashion. The skin and subcutaneous tissues were infiltrated with buffered 1% lidocaine for local anesthesia. S mall skin incision was made. A 17-gauge guide needle was advanced followed by axial noncontrasted CT images. This was repeated until the tip was placed just within the peripheral margin of the pleura l-based mass. A total of two 18-gauge core needle biopsy specimens were obtained utilizing coaxial technique. Specimens were evaluated by the pathologist, and the pathologist noted spindle cells. No a dditional tissue was requested. The needle was removed, and hemostasis was achieved with direct pressure. Follow-up CT scan at site o f biopsy was performed which demonstrated no significant hematoma or evidence of a pneumothorax. The patient tolerated the procedure well without immediate consultation. [facility] for further monitoring prior to discharge. IMPRESSION: Technically successful CT-guided percutaneous biopsy of a small pleural-based mass lateral aspect lef t mid chest. No pneumothorax was seen post procedure. Pathology is pending.
--- NOTE | 2019-04-21 10:01 | CT ---
EXAM: CT Lung Perc Biopsy PROVIDED CLINICAL HISTORY: Right pleural-based mass. Biopsy was requested. COMPARISON: CT thorax on 03/27/2019. TECHNIQUE: The procedure including the risks and complications were explained to the patient, and informed conse nt was obtained. The patient was placed on the CT scan table in the left lateral decubitus position. A limited noncontrasted CT scan was obtained with grid localizer in place overlying the lev el of the pleural-based mass left mid chest. An area was marked and then meticulously prepped and draped in usual sterile fashion. The skin and subcutaneous tissues were infiltrated with buffered 1% lidocaine for local anesthesia. S mall skin incision was made. A 17-gauge guide needle was advanced followed by axial noncontrasted CT images. This was repeated until the tip was placed just within the peripheral margin of the pleura l-based mass. A total of two 18-gauge core needle biopsy specimens were obtained utilizing coaxial technique. Specimens were evaluated by the pathologist, and the pathologist noted spindle cells. No a dditional tissue was requested. The needle was removed, and hemostasis was achieved with direct pressure. Follow-up CT scan at site o f biopsy was performed which demonstrated no significant hematoma or evidence of a pneumothorax. The patient tolerated the procedure well without immediate consultation. [facility] for further monitoring prior to discharge. IMPRESSION: Technically successful CT-guided percutaneous biopsy of a small pleural-based mass lateral aspect lef t mid chest. No pneumothorax was seen post procedure. Pathology is pending. Transcribed Date/Time: 04/21/2019 10:01 AM
== END 2019-04-17 13:55 | disposition home or self-care (01) ==
LOC: CT 09:01
PROVIDERS: ATTEND Internal Medicine Critical Care Medicine
PROC: 0BBK3ZX Excision of Right Lung, Percutaneous Approach, Diagnostic (ICD-10-PCS; principal; 2019-04-17)
DX: J98.4 Other disorders of lung (principal); I10 Essential (primary) hypertension; J45.909 Unspecified asthma, uncomplicated; F41.9 Anxiety disorder, unspecified; M81.0 Age-related osteoporosis without current pathological fracture; Z79.899 Other long term (current) drug therapy; Z88.5 Allergy status to narcotic agent; Z91.040 Latex allergy status
CPT/HCPCS: 32405; 36415; 71045; 77012; 85025; 85610; 85730; 88305; 88333; 88334

== ENCOUNTER 2019-08-09 11:18 | Emergency (ER) | payer OTHER ==
[2019-08-09 12:52] LABS: ALT (SGPT) 12 U/L (8-55); AST (SGOT) 15 U/L (5-34); Albumin 3.7 g/dL (3.5-5.0); Alkaline Phosphatase 152 U/L (40-110); Anion Gap 12 mmol/L (10-20); BUN (Urea Nitrogen) 14 mg/dL (9.8-20.1); Bilirubin, Total 0.5 mg/dL (0.2-1.2); Calc. Creatinine Clearance 0 mL/min (70-130); Calcium 8.6 mg/dL (7.8-10.44); Carbon Dioxide 24 mmol/L (22-29); Chloride 106 mmol/L (98-107); Estimated GFR-MDRD 90; Globulin 2.6 g/dL (2.4-3.5); Glucose 90 mg/dL (70-105); Potassium 3.9 mmol/L (3.5-5.1); Protein, Total 6.3 g/dL (6.0-8.3); Sodium 138 mmol/L (136-145)
[2019-08-09 12:57] LABS: #Basophils 0.1 thou/uL (0.0-0.2); #Eosinphils 0.4 thou/uL (0.0-0.7); #Lymphocytes 2.5 thou/uL (1.20-3.40); #Monocytes 0.3 thou/uL (0.11-0.59); #Neutrophils 3.5 thou/uL (1.40-6.50); %Basophils 1.8 % (0.0-1.0); %Eosinophils 5.7 % (0.0-10.0); %Lymphocytes 37.4 % (21.0-51.0); %Monocytes 3.7 % (0.0-10.0); %Neutrophils 51.4 % (42.0-75.0); Hemoglobin 14.6 g/dL (12.0-16.0); Mean Corpuscular HGB CONC 34.1 g/dL (32.0-36.0); Mean Corpuscular Volume 93.9 fL (78.0-98.0); Mean Platelet Volume 8.3 fL (7.4-10.4); Platelet Count 188 thou/uL (130-400); RBC Distribution Width 12.1 % (11.5-14.5); Red Blood Cell (RBC) Count 4.56 mill/uL (4.20-5.40); White Blood Cell (WBC) Count 6.8 thou/uL (4.8-10.8)
[2019-08-09] MEDS ORDERED: Ibuprofen 200 MG TAB ONE (12:59)
--- NOTE | 2019-08-09 14:17 | RAD ---
2 view chest: [08/09/2019] Comparison: 08/08/2019 HISTORY: Rib tumor removal 06/09/2019 FINDINGS: As on the prior examination there is focal pleural thickening involving the lateral aspect of the mid right hemithorax with postoperative resection of right-sided ribs, consistent with the patient's provided history of tumor removal. Detailed assessment is limited on radiographs. CT may be beneficial for further assessment if clinically warranted. Blunting of the costophrenic angle on the right suggests associated right pleural fluid and/or pleural thickening. No pneumothorax. Left divine ng appears clear. IMPRESSION: Lateral pleural thickening with postoperative irregularity of lateral right-sided ribs. T his is consistent with the provided history of tumor resection.
== END 2019-08-09 15:03 | disposition home or self-care (01) ==
LOC: ERS 11:18
DX: R07.81 Pleurodynia (principal); E78.5 Hyperlipidemia, unspecified; I10 Essential (primary) hypertension; J45.909 Unspecified asthma, uncomplicated; F32.9 Major depressive disorder, single episode, unspecified; E78.00 Pure hypercholesterolemia, unspecified; Z79.899 Other long term (current) drug therapy
CPT/HCPCS: 36415; 71046; 80053; 84484; 85025; 93005

== ENCOUNTER 2019-11-09 09:08 | Outpatient (CLI) | payer OTHER ==
[2019-11-09] MEDS ORDERED: Iopamidol-370 76% 500 ML 1 ML ONE (09:49)
--- NOTE | 2019-11-09 10:51 | CT ---
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 Posterior right fifth rib mass. History of s urgery for mass in May. COMPARISON: 04/06/[address] thorax obtained from [facility] on 08/18/2019 FINDINGS: There is significant motion artifact on this exam which does limit evaluation. Aorta: Vascular calcifications are seen. No other significant patient motion, and the abdominal aorta is grossly normal in caliber, portions of the thoracic aorta are not well evaluated. Lungs: There is absence of the lateral right fourth, fifth, and sixth ribs with pleural-based density along the right lateral chest margin. There is motion present through this region which limits adequate evaluation. Pleural thickening is seen along the right lateral chest at level of rib resecti on. Allowing for motion, the pleural thickening along the right lateral chest wall is similar to study obtained at [facility] on 08/18/2019. The previously noted mass on study of 04/06/2019 is not visualized. Motion artifacts limit evaluation of the lung parenchyma, but no definite parenchymal lung mass or co nsolidation is seen. There is no pleural effusion. Small pulmonary nodule be difficult to entirely exclude on this exam. Mediastinum: No enlarged lymph nodes are appreciated by CT size criteria. Thyroid gland: Normal CT appearance. Osseous structures: Resection of lateral right-sided ribs as described above. Mild left convex curvat ure thoracic spine is present. Chest wall: As described above. Upper abdomen: Stable low-density lesion posterior segment right hepatic lobe. Small hiatal hernia is present. Remainder of the imaged upper abdomen demonstrates a normal CT appearance. IMPRESSION: 1. Significant patient motion which degrades image quality and does limit evaluation. 2. Lateral right-sided rib resections with pleural thickening at right lateral chest wall and slightl y extending posteriorly, and although there is motion through this region on the current exam, findings are overall stable to study on 08/18/2019. 3. Stable difficult to characterize hypodense lesion right hepatic lobe.
== END 2019-11-09 09:09 | disposition home or self-care (01) ==
LOC: BICCT 09:08
PROVIDERS: ATTEND Internal Medicine Hematology & Oncology
DX: D24.2 Benign neoplasm of left breast (principal); M95.4 Acquired deformity of chest and rib; J92.9 Pleural plaque without asbestos
CPT/HCPCS: 71260; Q9967

== ENCOUNTER 2019-11-13 13:02 | Outpatient (CLI) | payer OTHER ==
--- NOTE | 2019-11-13 13:48 | MMO ---
Bilateral MAMMO Bilat Screen [facility]. CLINICAL HISTORY: Patient is 59 years old and is seen for screening. The patient has no family history of breast cancer. The patient has a history of malignant (generic) in the right breast 2007 and lung cancer 2018. The patient has a history of right Excisional Biopsy in 2007 - malignant - PT WROTE BENIGN ON SCREENING FORM BUT STATES IT WA and left Excisional Biopsy at age 28 - benign - X 3. VIEWS: The views performed were: bilateral craniocaudal with tomosynthesis and bilateral mediolateral oblique with tomosynthesis. FILMS COMPARED: The present examination has been compared to prior imaging studies performed at [facility] on 09/17/2014, 09/30/2015, 10/19/2016 and 01/15/2018. This study has been interpreted with the assistance of computer-aided detection. MAMMOGRAM FINDINGS: The breasts are heterogeneously dense, which could obscure a lesion on mammography. There are stable benign appearing calcifications seen in both breasts. There are also vascular calcifications. There are no suspicious masses, suspicious calcifications, or new areas of architectural distortion. IMPRESSION: THERE IS NO MAMMOGRAPHIC EVIDENCE OF MALIGNANCY. A ROUTINE FOLLOW-UP MAMMOGRAM IN 1 YEAR IS RECOMMENDED. THE RESULTS OF THIS EXAM WERE SENT TO THE PATIENT. ACR BI-RADS Category 2 - Benign finding MAMMOGRAPHY NOTE: 1. A negative mammogram report should not delay a biopsy if a dominant of clinically suspicious mass is present. 2. Approximately 10% to 15% of breast cancers are not detected by mammography. 3. Adenosis and dense breasts may obscure an underlying neoplasm. Reported by: SILVIANO LAND MD Electonically Signed: [id number]
== END 2019-11-13 13:03 | disposition home or self-care (01) ==
LOC: BICMAMMO 13:02
PROVIDERS: ATTEND Internal Medicine Hematology & Oncology
DX: Z12.31 Encounter for screening mammogram for malignant neoplasm of breast (principal); Z85.3 Personal history of malignant neoplasm of breast; Z91.89 Other specified personal risk factors, not elsewhere classified; Z85.118 Personal history of other malignant neoplasm of bronchus and lung
CPT/HCPCS: 77063; 77067

== ENCOUNTER 2020-05-10 08:58 | Outpatient (CLI) | payer OTHER ==
[2020-05-10 09:31] LABS: Estimated GFR-MDRD - POC Greater than 90
--- NOTE | 2020-05-10 11:44 | CT ---
CHEST CT SCAN WITH IV CONTRAST: Date: 05/10/2020 HISTORY: Right breast phyllodes tumor, posterior right fifth rib mass, breast cancer. COMPARISON: 02/09/2020. FINDINGS: Stable prior multiple partial rib resection changes. Minimal stable deformity of the manubrium of the sternum. Small stable right lobe of liver cyst. No mediastinal mass or adenopathy. No pleural effusi on or pericardial effusion. Small hiatal hernia. IMPRESSION: Multiple partial right rib resection changes. No evidence for metastasis. No pleural or pericardial e ffusion. Stable appearance from prior study. POS: [facility]
[2020-05-10] MEDS ORDERED: Iopamidol 370 76% 100 ML VIAL ONE (12:54)
== END 2020-05-10 08:59 | disposition home or self-care (01) ==
LOC: BICCT 08:58
PROVIDERS: ATTEND Internal Medicine Hematology & Oncology
DX: D24.1 Benign neoplasm of right breast (principal); R22.2 Localized swelling, mass and lump, trunk
CPT/HCPCS: 71260; 82565; Q9967

== ENCOUNTER 2020-12-05 09:02 | Outpatient (CLI) | payer BC ==
[2020-12-05] MEDS ORDERED: Iopamidol-370 76% 500 ML 1 ML ONE (13:43)
== END 2020-12-05 09:03 | disposition home or self-care (01) ==
LOC: BICCT 09:02
PROVIDERS: ATTEND Internal Medicine Hematology & Oncology
DX: D48.61 Neoplasm of uncertain behavior of right breast (principal); D24.1 Benign neoplasm of right breast; K76.89 Other specified diseases of liver; M89.8X8 Other specified disorders of bone, other site; I31.3 Pericardial effusion (noninflammatory); I51.7 Cardiomegaly; Z98.890 Other specified postprocedural states
CPT/HCPCS: 71260; Q9967

== ENCOUNTER 2021-05-05 14:04 | Outpatient (CLI) | payer BC | END 2021-05-05 14:05 | disposition home or self-care (01) | LOC: BICMAMMO 14:04 | PROVIDERS: ATTEND Family Medicine | DX: Z12.31 Encounter for screening mammogram for malignant neoplasm of breast (principal); Z85.118 Personal history of other malignant neoplasm of bronchus and lung; Z85.3 Personal history of malignant neoplasm of breast; Z98.890 Other specified postprocedural states | CPT/HCPCS: 77063; 77067 ==

== ENCOUNTER 2021-06-05 08:53 | Outpatient (CLI) | payer BC | END 2021-06-05 08:54 | disposition home or self-care (01) | LOC: BICCT 08:53 | PROVIDERS: ATTEND Internal Medicine Hematology & Oncology | DX: C78.01 Secondary malignant neoplasm of right lung (principal); D24.1 Benign neoplasm of right breast; M95.4 Acquired deformity of chest and rib; K76.89 Other specified diseases of liver; Z98.890 Other specified postprocedural states; K76.9 Liver disease, unspecified | CPT/HCPCS: 71260; 82565 ==

== ENCOUNTER 2023-06-10 07:52 | Outpatient (CLI) | payer BC ==
[2023-06-10] MEDS ORDERED: Iopamidol 370 76% 100 ML VIAL ONE (09:30)
== END 2023-06-10 07:53 | disposition home or self-care (01) ==
LOC: BICCT 07:52 → CT 07:53
PROVIDERS: ATTEND Internal Medicine Hematology & Oncology
DX: C78.01 Secondary malignant neoplasm of right lung (principal)
CPT/HCPCS: 71260; 82565

== ENCOUNTER 2023-06-26 09:40 | Outpatient (CLI) | payer BC | END 2023-06-26 09:41 | disposition home or self-care (01) | LOC: BICMAMMO 09:40 | PROVIDERS: ATTEND Family Medicine | DX: Z12.31 Encounter for screening mammogram for malignant neoplasm of breast (principal); Z85.3 Personal history of malignant neoplasm of breast; Z85.118 Personal history of other malignant neoplasm of bronchus and lung; Z91.89 Other specified personal risk factors, not elsewhere classified; Z98.890 Other specified postprocedural states | CPT/HCPCS: 77063; 77067 ==